=== PATIENT | male | born 1965 | race Caucasian/White ===

== ENCOUNTER 2016-10-28 22:10 | Emergency (ER) | payer SELFPAY ==
[~2016-10-28] VITALS: Ht 175.3 cm; Wt 60.0 kg
[2016-10-28 22:29] VITALS: Ht 175.3 cm; Wt 60.0 kg
[2016-10-29] MEDS ORDERED: HYDROCODONE/APAP (5/325) TAB PO ONE
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
[2016-10-29] MEDS ORDERED: IBUP-1542 PO (01:14)
[2016-10-29] MEDS ORDERED: HYDR-906 PO (01:14)
== END 2016-10-29 01:46 | disposition home or self-care (01) ==
LOC: FTE 22:10
DX: R51 Headache (principal); S80.02XA Contusion of left knee, initial encounter; F17.210 Nicotine dependence, cigarettes, uncomplicated; V03.10XA Pedestrian on foot injured in collision with car, pick-up truck or van in traffic accident, initial encounter
CPT/HCPCS: 70450; 72125; 73562

== ENCOUNTER 2018-01-13 19:50 | Emergency (ER) | END 2018-01-13 22:07 | disposition home or self-care (01) ==

== ENCOUNTER 2018-02-07 17:46 | Emergency (ER) | END 2018-02-07 23:30 | disposition home or self-care (01) ==

== ENCOUNTER 2018-03-25 22:32 | Inpatient (IN) | END 2018-03-27 18:05 | disposition home or self-care (01) | DRG 917 ==